=== PATIENT | male | born 1940 | race Caucasian/White ===

== ENCOUNTER 2021-09-02 09:30 | Emergency (ER) | payer OTHER, BC, SELFPAY ==
[~2021-09-02] VITALS: Ht 175.3 cm; Wt 77.6 kg
[2021-09-02 09:53] VITALS: BP_SYST 132
--- NOTE | 2021-09-02 10:00 | NUR ---
Orders placed per Dr Abbott for patient
[2021-09-02 10:47] LABS: BASOPHILS # (AUTO) 0.1 K/uL (0.0-0.2); BASOPHILS % (AUTO) 1.2 % (0.0-2.0); EOSINOPHILS % (AUTO) 0.7 % (0.0-4.0); HEMATOCRIT 42.1 % (36-54); HEMOGLOBIN 14.1 g/dL (14.0-18.0); LYMPHOCYTES # (AUTO) 1.2 K/uL (1.0-5.5); LYMPHOCYTES % (AUTO) 25.3 % (20.5-51.5); MEAN CORPUSCULAR HEMOGLOBIN 32 pg (27-31); MEAN CORPUSCULAR HGB CONC 33 % (32-36); MEAN CORPUSCULAR VOLUME 95 fL (79.0-98.0); MONOCYTES # (AUTO) 0.4 K/uL (0.0-1.0); MONOCYTES % (AUTO) 9.1 % (1.7-9.3); NEUTROPHILS # (AUTO) 3.1 K/uL (1.8-7.7); NEUTROPHILS % (AUTO) 63.7 % (40.0-70.0); PLATELET COUNT (AUTO) 162 K/uL (130-430); RED BLOOD CELL COUNT(AUTO) 4.44 MIL/uL (4.2-6.2); RED CELL DISTRIBUTION WIDTH 15.6 % (9.0-15.0); WHITE BLOOD COUNT (AUTO) 4.9 K/uL (4.8-10.8)
[2021-09-02 10:53] LABS: ANION GAP 11 (5-15); CALCIUM 9.8 mg/dL (8.4-11.0); CHLORIDE 104 mmol/L (98-107); CREATININE 1.41 mg/dL (0.55-1.30); GLUCOSE 106 mg/dL (70-99); SODIUM SERUM 138 mmol/L (136-145); UREA NITROGEN, BLOOD 29 mg/dL (8-21)
[2021-09-02 11:08] LABS: ALANINE AMINOTRANSFERASE 29 U/L (12-78); ALBUMIN 3.7 g/dL (3.4-4.8); ASPARTATE AMINOTRANSFERASE 30 U/L (10-37); FREE T4 (FREE THYROXINE) 1.2 ng/dl (0.8-1.5); THYROID STIMULATING HORMONE 1.59 uIu/mL (0.36-3.74)
[2021-09-02 11:09] LABS: ALCOHOL, BLOOD < 3 mg/dL (<10)
--- NOTE | 2021-09-02 12:23 | NUR ---
Pt to room 4 via wheelchair. Per report received from Olegario NAPIER, pt here for . Per son, pt has not slept for 3 days. [facility] Parkinson's. Awaiting MD jansen.
--- NOTE | 2021-09-02 12:37 | NUR ---
Per son (at bedside with patient), pt already had CT scan, labs and EKG while in waiting area.
[2021-09-02 14:11] LABS: BILIRUBIN,URINE NEGATIVE (NEGATIVE); BLOOD, URINE 1+ (NEGATIVE); CLARITY/URINE CLEAR (CLEAR); COLOR,URINE YELLOW (YELLOW); GLUCOSE,URINE NEGATIVE (NEGATIVE); KETONES,URINE NEGATIVE (NEGATIVE); LEUKOCYTE ESTERASE ,URINE NEGATIVE (NEGATIVE); NITRITE, URINE NEGATIVE (NEGATIVE); PH,URINE 5.5 (5.0-8.0); PROTEIN URINE NEGATIVE (NEGATIVE); UROBILINOGEN,URINE 0.2 (0.2-1.0)
[2021-09-02 14:32] LABS: BACTERIA,URINE RARE /HPF (None Seen); MUCUS,URINE 1+ /LPF (None Seen); RBC,URINE 0-3 /HPF (0-3); WBC,URINE 0-3 /HPF (0-3)
[2021-09-02 14:34] LABS: BARBITURATE, URINE NEGATIVE (NEG <=200); BENZODIAZEPINE, URINE NEGATIVE (NEG <=150); CANNABINOID, URINE NEGATIVE (NEG <=50); COCAINE, URINE NEGATIVE (NEG <=150); METHAMPHETAMINES SCREEN,URINE NEGATIVE (NEG <=500); OPIATE, URINE NEGATIVE (NEG <=100); PHENCYCLIDINE SCREEN,URINE NEGATIVE (NEG <=25); UR TRICYCLIC ANTIDEPRESSANTS NEGATIVE (NEG <=300); URINE AMPHETAMINE NEGATIVE (NEG <=500); URINE METHADONE NEGATIVE (NEG <=200); URINE OXYCODONE SCREEN NEGATIVE (NEG <=100); URINE PROPOXYPHENE SCREEN NEGATIVE (NEG <=300)
[2021-09-02] MEDS ORDERED: ALPRAZolam 0.25 MG TABLET PO ONE (14:45)
--- NOTE | 2021-09-02 15:24 | NUR ---
Dr Julien to bedside to update pt and son. Pt slept for about 30 minutes; has been given PRN med but remains awake. Pt to be discharged.
--- NOTE | 2021-09-02 15:30 | NUR ---
Patient given written and verbal discharge instructions and verbalizes understanding. ER MD discussed with patient the results and treatment provided. Patient in stable condition. ID arm band removed. Rx of Xanax given. Patient educated on pain management and to follow up with PMD. Pain scale 0/10. Opportunity for questions provided and answered. Medication side effect fact sheet provided.
[2021-09-02] MEDS ORDERED: ALPR0.5T PO (15:53)
[2021-09-02 16:09] VITALS: BP_SYST 132
== END 2021-09-02 16:09 | disposition home or self-care (01) ==
LOC: SED 09:30
DX: G20 Parkinson's disease (principal); R44.0 Auditory hallucinations; Z79.899 Other long term (current) drug therapy
CPT/HCPCS: 36415; 70450; 71045; 76376; 80053; 80307; 81000; 84439; 84443; 84484; 85025; 93005; 99285; G0482

== ENCOUNTER 2023-02-24 15:16 | Inpatient (IN) | payer OTHER, BC ==
[~2023-02-24] VITALS: Ht 177.8 cm; Wt 93.4 kg
[~2023-02-24 15:16] MED LIST: ALLO300T2 PO; ALPR0.5T PO; ASA81 PO; CART1TAB4 PO; FINA5TAB3 PO; HYDR12.55; LOSA50TA3 PO; MULT-1117 PO; OMEG-145 PO; OMEG10006 PO; OMEP20TA20 PO; OMEP40CA20 PO; POTA8TAB66 PO; SIMV-345 PO; TAMS-11 PO; VITD400 PO
[2023-02-24 15:36] VITALS: BP_SYST 150; PULSE 83; RESP 16; TEMP 97.8; O2SAT 98
[2023-02-24 15:36] LABS: BASOPHILS # (AUTO) 0.1 K/uL (0.0-0.2); BASOPHILS % (AUTO) 0.7 % (0.0-2.0); EOSINOPHILS % (AUTO) 0.3 % (0.0-4.0); HEMOGLOBIN 12.4 g/dL (14.0-18.0); LYMPHOCYTES # (AUTO) 1.4 K/uL (1.0-5.5); LYMPHOCYTES % (AUTO) 17.4 % (20.5-51.5); MEAN CORPUSCULAR HEMOGLOBIN 30 pg (27-31); MEAN CORPUSCULAR HGB CONC 33 % (32-36); MEAN CORPUSCULAR VOLUME 92 fL (79.0-98.0); MONOCYTES # (AUTO) 0.7 K/uL (0.0-1.0); MONOCYTES % (AUTO) 7.9 % (1.7-9.3); NEUTROPHILS # (AUTO) 6.1 K/uL (1.8-7.7); NEUTROPHILS % (AUTO) 73.7 % (40.0-70.0); PLATELET COUNT (AUTO) 230 K/uL (130-430); RED BLOOD CELL COUNT(AUTO) 4.13 MIL/uL (4.2-6.2); RED CELL DISTRIBUTION WIDTH 15.2 % (9.0-15.0); WHITE BLOOD COUNT (AUTO) 8.2 K/uL (4.8-10.8)
[2023-02-24 15:54] LABS: ANION GAP 11 (5-15); CALCIUM 9.1 mg/dL (8.4-11.0); CHLORIDE 99 mmol/L (98-107); CREATININE 1.53 mg/dL (0.55-1.30); GLUCOSE 118 mg/dL (74-106); UREA NITROGEN, BLOOD 29 mg/dL (8-21)
[2023-02-24 16:01] LABS: ALANINE AMINOTRANSFERASE 14 U/L (12-78); ALBUMIN 3.4 g/dL (3.4-4.8); ASPARTATE AMINOTRANSFERASE 28 U/L (10-37); TOTAL BILIRUBIN 0.7 mg/dL (0.0-1.0)
[2023-02-24] MEDS: D5/0.45 NS 1,000 ML IV SCH (22:50)
[2023-02-24 23:20] VITALS: BP_SYST 137; PULSE 58; RESP 18; TEMP 97.6; O2SAT 100
[2023-02-25 00:08] VITALS: BP_SYST 137; PULSE 58; RESP 18; TEMP 97.6; O2SAT 99
[2023-02-25 08:00] VITALS: BP_SYST 130; PULSE 55; RESP 18; TEMP 96.4; O2SAT 98
[2023-02-25] MEDS ORDERED: ONDANSETRON HCL 4 MG/2 ML VIAL IVP PRN (11:00)
[2023-02-25] MEDS ORDERED: HYDROcodone/ACETAMIN 10-325 MG TAB PO PRN (11:00)
[2023-02-25] MEDS ORDERED: ACETAMINOPHEN 325 MG TABLET PO PRN ×2 (11:00→12:00)
[2023-02-25] MEDS ORDERED: HYDROcodone/ACETAMIN 5-325 MG TAB (NORCO/ VICODIN) PO PRN (11:00)
[2023-02-25] MEDS ORDERED: NALOXONE HCL 0.4 MG/ML AMP (NARCAN) IVP PRN ×2 (11:00)
[2023-02-25] MEDS ORDERED: LORazepam 2 MG/ML VIAL IVP PRN (11:00)
[2023-02-25 12:00] VITALS: BP_SYST 144; PULSE 65; RESP 18; TEMP 97.8; O2SAT 99
[2023-02-25] MEDS: NORMAL SALINE 5 ML DISP.SYRIN IVF SCH ×2 (14:45→21:12)
[2023-02-25] MEDS: D5/0.45 NS 1,000 ML IV SCH ×2 (14:45→14:46)
[2023-02-25 16:00] VITALS: BP_SYST 125; PULSE 62; RESP 18; TEMP 97.7; O2SAT 99
[2023-02-25 19:00] VITALS: O2SAT 98
[2023-02-25] MEDS ORDERED: SIMVASTATIN 40 MG TABLET PO SCH (21:00)
[2023-02-25] MEDS ORDERED: OMEGA-3/DHA/EPA/FISH OIL 1 GM CAPSULE PO SCH (21:00)
[2023-02-25] MEDS ORDERED: ALPRAZolam 0.25 MG TABLET PO SCH (21:00)
[2023-02-25] MEDS: CARBIDOPA/LEVODOPA 25/250 MG TABLET PO SCH (21:12)
[2023-02-26] MEDS: D5/0.45 NS 1,000 ML IV SCH (00:38)
[2023-02-26 02:13] VITALS: BP_SYST 133; PULSE 56; RESP 17; TEMP 98.4; O2SAT 99
[2023-02-26 06:12] LABS: BASOPHILS % (AUTO) 0.5 % (0.0-2.0); EOSINOPHILS # (AUTO) 0.3 K/uL (0.0-0.4); EOSINOPHILS % (AUTO) 5.1 % (0.0-4.0); HEMATOCRIT 34.3 % (36-54); HEMOGLOBIN 11.3 g/dL (14.0-18.0); LYMPHOCYTES # (AUTO) 1.8 K/uL (1.0-5.5); LYMPHOCYTES % (AUTO) 27.3 % (20.5-51.5); MEAN CORPUSCULAR HEMOGLOBIN 30 pg (27-31); MEAN CORPUSCULAR HGB CONC 33 % (32-36); MEAN CORPUSCULAR VOLUME 91 fL (79.0-98.0); MONOCYTES # (AUTO) 0.6 K/uL (0.0-1.0); MONOCYTES % (AUTO) 8.5 % (1.7-9.3); NEUTROPHILS # (AUTO) 3.9 K/uL (1.8-7.7); NEUTROPHILS % (AUTO) 58.6 % (40.0-70.0); PLATELET COUNT (AUTO) 211 K/uL (130-430); RED BLOOD CELL COUNT(AUTO) 3.76 MIL/uL (4.2-6.2); RED CELL DISTRIBUTION WIDTH 15.1 % (9.0-15.0); WHITE BLOOD COUNT (AUTO) 6.6 K/uL (4.8-10.8)
[2023-02-26] MEDS: NORMAL SALINE 5 ML DISP.SYRIN IVF SCH (06:27)
[2023-02-26 06:39] LABS: ANION GAP 8 (5-15); CALCIUM 8.5 mg/dL (8.4-11.0); CHLORIDE 101 mmol/L (98-107); CREATININE 0.95 mg/dL (0.55-1.30); GLUCOSE 106 mg/dL (74-106); UREA NITROGEN, BLOOD 17 mg/dL (8-21)
[2023-02-26 07:50] VITALS: BP_SYST 127; PULSE 61; RESP 18; TEMP 96.8; O2SAT 99
[2023-02-26 08:00] VITALS: O2SAT 99
[2023-02-26] MEDS ORDERED: PANTOPRAZOLE SODIUM 40 MG TAB PO SCH (09:00)
[2023-02-26] MEDS ORDERED: OMEGA-3/DHA/EPA/FISH OIL 1 GM CAPSULE PO SCH (09:00)
[2023-02-26] MEDS ORDERED: MULTIVITAMINS TAB 1 TABLET PO SCH (09:00)
[2023-02-26] MEDS ORDERED: LOSARTAN POTASSIUM 50 MG TABLET (COZAAR) PO SCH (09:00)
[2023-02-26] MEDS ORDERED: ASPIRIN 81 MG TAB.CHEW PO SCH (09:00)
[2023-02-26] MEDS ORDERED: CHOLECALCIFEROL (VITAMIN D-3) 400 UNIT TABLET PO SCH (09:00)
[2023-02-26] MEDS ORDERED: ALLOPURINOL 300 MG TABLET (ZYLOPRIM) PO SCH (09:00)
[2023-02-26] MEDS ORDERED: OMEPRAZOLE Non-Formulary 20 MG CAPSULE.DR PO SCH (09:00)
[2023-02-26] MEDS ORDERED: FINASTERIDE 5 MG TABLET (PROSCAR) PO SCH (09:00)
[2023-02-26] MEDS ORDERED: POTASSIUM CHLORIDE 8 MEQ TABLET.SA PO SCH (09:00)
[2023-02-26] MEDS ORDERED: TAMSULOSIN HCL 0.4 MG CAP PO SCH (09:00)
[2023-02-26] MEDS ORDERED: HYDROCHLOROTHIAZIDE 12.5 MG CAPSULE (HCTZ) PO SCH (09:00)
[2023-02-26] MEDS: CARBIDOPA/LEVODOPA 25/250 MG TABLET PO SCH (09:12)
[2023-02-26] MEDS ORDERED: CARB-93 PO (10:18)
[2023-02-26 11:35] VITALS: BP_SYST 130; PULSE 59; RESP 17; TEMP 97.2; O2SAT 97
[2023-02-26 12:40] VITALS: BP_SYST 130; PULSE 59; RESP 17; TEMP 97.2; O2SAT 97
== END 2023-02-26 12:50 | disposition home health service (06) | DRG 56 ==
LOC: SED 15:16 → STU 18:42
PROVIDERS: ADMIT Preventive Medicine Preventive Medicine/Occupational Environmental Medicine; ATTEND Preventive Medicine Preventive Medicine/Occupational Environmental Medicine
DX: G20 Parkinson's disease (principal); N17.0 Acute kidney failure with tubular necrosis; R47.1 Dysarthria and anarthria; N18.9 Chronic kidney disease, unspecified; F02.80 Dementia in other diseases classified elsewhere, unspecified severity, without behavioral disturbance, psychotic disturbance, mood disturbance, and anxiety; I12.9 Hypertensive chronic kidney disease with stage 1 through stage 4 chronic kidney disease, or unspecified chronic kidney disease; Z95.1 Presence of aortocoronary bypass graft; Z86.73 Personal history of transient ischemic attack (TIA), and cerebral infarction without residual deficits; Z79.82 Long term (current) use of aspirin; Z79.899 Other long term (current) drug therapy; I25.2 Old myocardial infarction
CPT/HCPCS: 36415; 70450-TC; 70551; 76376; 80048; 80053; 84484; 85025; 92610-GN; 93005; 93306; 97116-GP; 97163-GP; 97530-GP; 99285; G0378; J2060